=== PATIENT | male | born 1945 ===

== ENCOUNTER → 2024-04-18 16:00 | Outpatient (CLI) | payer MEDICARE, SELFPAY | LOC: RAD 16:05 | PROVIDERS: PCP Family Medicine; Referring Provider Family Medicine; Visit Provider Family Medicine | DX: R07.9 Chest pain, unspecified (principal) | CPT/HCPCS: 93005 ==

== ENCOUNTER → 2024-05-26 10:36 | Outpatient (CLI) | payer MEDICARE, SELFPAY ==
[2024-05-26 12:29] LABS: Prostate Specific Antigen < 0.064 ng/mL (0.10-4.00)
== END ==
LOC: LAB 10:38
PROVIDERS: PCP Family Medicine; Referring Provider Internal Medicine Hematology & Oncology; Visit Provider Internal Medicine Hematology & Oncology
DX: C61 Malignant neoplasm of prostate (principal)
CPT/HCPCS: 36415; 84153

== ENCOUNTER → 2024-06-03 13:43 | Outpatient (CLI) | payer MEDICARE, SELFPAY ==
--- NOTE | 2024-06-03 13:44 | DI.ECHO.S_ITS ---
[facility] : : [id number] : : [place] : : [id number] : : Phone: [phone] Echocardiogram Report + + :Name: BRYAN MACHADO Study Date: 06/03/2024 Height: 69 in : :Hospital ReadingLocation: Weight: 170 lb : : Gender: Male BSA: 1.9 m2 : :: 1945 Age: 78 yrs BP: 127/80 mmHg: :Reason For Study: EXERTIONAL CHEST PAIN : :Ordering Physician: SP, : :LISETTE Mendieta Performed By: Maty Velasquez : :Referring: LISETTE SNOWDEN : + + Interpretation Summary 1) Normal left ventricular thickness, size, wall motion, and systolic function (EF 60-65%). 2) Normal right ventricular size and function. 3) There is mild mitral regurgitation. 4) No prior Echo available for comparison. Procedure: A two-dimensional transthoracic echocardiogram with color flow and Doppler was performed. The study quality was technically adequate. There is no prior echocardiogram noted for this patient. The patient was in sinus rhythm with heart rates between 52-66 bpm during the exam. Left Ventricle: The left ventricle is normal in size and wall thickness. The ejection fraction is estimated to be 60-65%. Left ventricular systolic function appears normal without focal wall motion abnormalities. Diastolic parameters suggest a relaxation abnormality of the left ventricle, consistent with probable normal filling pressures. Right Ventricle: The right ventricle is normal in size and function. Atria: The left atrial size is normal. Right atrial size is normal. There is no Doppler evidence for an interatrial shunt. Mitral Valve: The mitral valve is grossly normal. There is mild mitral annular calcification. There is mild mitral regurgitation. Aortic Valve: The aortic valve is trileaflet. The aortic valve opens well. There is no aortic valve stenosis. No aortic regurgitation is present. Tricuspid Valve: The tricuspid valve is normal in structure and function. There is mild tricuspid regurgitation. The right ventricular systolic pressure is estimated to be at least 28 mmHg based on an estimated right atrial pressure of 3 mm Hg. Pulmonic Valve: The pulmonic valve leaflets are thin and pliable; valve motion is normal. There is mild to moderate pulmonic regurgitation. Great Vessels: The aortic root is normal size. The dimensions of the ascending aorta are normal. Inspiratory collapse cannot be assessed because of mechanical ventilation, thus CVP cannot be estimated.. Pericardium/ Pleura There is no pericardial effusion. There is no pleural effusion. MMode/2D Measurements & Calculations LVIDd: 5.1 cm LVOT diam: 2.0 cm LVIDs: 3.4 cm Ao root diam: 3.2 cm FS: 33.8 % asc Aorta Diam: 3.6 cm EPSS: 0.77 cm Ao Arch Diam (Prox Trans): 2.5 cm IVSd: 0.63 cm LVPWd: 0.76 cm LV morrissey. diameter/BSA (cm/m^2): 2.7 LV sys. diameter/BSA (cm/m^2): 1.8 LA A2 area: 14.9 cm2 RA long axis: 5.5 cm LA A4 area: 17.5 cm2 RA area: 17.5 cm2 LA length (vol): 5.6 cm RA vol: 47.5 ml LA vol: 39.7 ml RA : 24.6 ml/m2 LA vol index: 20.6 ml/m2 IVC diam: 1.4 cm RVD1 (basal): 3.6 cm RVD2 (mid): 2.9 cm TAPSE: 2.7 cm Doppler Measurements & Calculations Ao V2 max: 124.7 cm/sec LVOT Max Nico: 76.5 cm/sec Ao V2 mean: 89.9 cm/sec LV V1 max P.3 mmHg Ao max P.2 mmHg LV V1 VTI: 18.7 cm Ao mean P.6 mmHg TIARRA(I,D): 2.0 cm2 Ao V2 VTI: 28.7 cm TIARRA(V,D): 1.9 cm2 sev ratio: 0.65 TIARRA indexed to BSA (cm^2/m^2): 1.1 MV E max nico: 76.0 cm/sec TR max nico: 247.5 cm/sec MV A max nico: 71.9 cm/sec TR max P.5 mmHg MV E/A: 1.1 PA V2 max: 112.1 cm/sec Med Peak E' Nico: 10.6 cm/sec PA V2 mean: 77.4 cm/sec E/E' med: 7.2 PA mean P.6 mmHg Lat Peak E' Nico: 9.0 cm/sec PA pr(Accel): 34.5 mmHg E/E' lat: 8.4 E/e' average: 7.8 MV dec time: 0.23 sec SV(LVOT): 58.8 ml Reading Physician:04:34 PM
== END ==
PROVIDERS: PCP Family Medicine; Referring Provider Family Medicine; Visit Provider Family Medicine
DX: R07.9 Chest pain, unspecified (principal); I08.1 Rheumatic disorders of both mitral and tricuspid valves
CPT/HCPCS: 93306

== ENCOUNTER → 2024-10-06 15:05 | Outpatient (CLI) | payer MEDICARE, SELFPAY ==
--- NOTE | 2024-10-06 15:07 | DI.NM.S_ITS ---
PROCEDURE: NM EXERCISE TREADMILL NON NUC COMPARISON: None. INDICATIONS: ,PRECORDIAL CHEST PAIN FINDINGS: Patient exercised per the standard Ernesto protocol. Total exercise time was 9 minutes and 29 seconds. Test terminated secondary to dyspnea. Maximum heart rate obtained is 144 bpm which is 101% of max predicted heart rate. Maximum blood pressure 160/68[place] [address]. BANDAR -62%. 10.1 METS. No ischemic changes noted. Chest pains voiced starting at 7 minutes into exercise and persisted until 2 minutes into recovery. No arrhythmias noted. Normal heart rate and blood pressure response to exercise. IMPRESSION: 1. Equivocal exercise treadmill stress test due to the presence of exercise-induced chest pain. 2. Above average exercise tolerance. Dictated by: Slim Yanez M.D. on 10/06/2024 at 16:57 Approved by: Slim Yanez M.D. on 10/06/2024 at 16:59
== END ==
PROVIDERS: PCP Family Medicine; Referring Provider Internal Medicine Cardiovascular Disease; Visit Provider Internal Medicine Cardiovascular Disease
DX: R07.2 Precordial pain (principal); R06.02 Shortness of breath
CPT/HCPCS: 93017